=== PATIENT | male | born 1975 | race Asian ===

== ENCOUNTER 2018-07-17 12:38 | Emergency (ER) | payer BC, OTHER ==
[~2018-07-17] VITALS: Ht 172.7 cm; Wt 107.7 kg
[~2018-07-17 12:38] MED LIST: MULT-6 PO
[2018-07-17 12:41] VITALS: BP 178/108
[2018-07-17] MEDS ORDERED: LIDOCAINE-MPF 1%, 5ML ONE (12:59)
[2018-07-17] MEDS ORDERED: LIDOCAINE 1%-EPI 1:100K, 20ML SQ ONE (13:00)
--- NOTE | 2018-07-17 13:25 | NUR ---
PT PRESENTED TO ED WITH RECTAL ABSCESS FOR A FEW DAYS. PT A&OX4. PT PLACED IN ROOM AND ASSESSMENT COMPLETED. PA AT BEDSIDE AND ASSISTED PA WITH iNCISION AND DRAINAGE OF RECTAL ABSCESS. PT TOLERATED WELL.
--- NOTE | 2018-07-17 13:36 | NUR ---
TASK RN: Discharge instructions discussed with patient, questions answered, verbalizes understanding. Prescription provided to patient with instruction for use. Patient ambulates with steady gait to discharge desk in no acute distress.
== END 2018-07-17 13:39 | disposition home or self-care (01) ==
LOC: ED 13:36
DX: K61.1 Rectal abscess (principal); I10 Essential (primary) hypertension; Z87.891 Personal history of nicotine dependence
CPT/HCPCS: 46040; 99284